=== PATIENT | male | born 1980 | race Two or more races ===

== ENCOUNTER 2021-04-15 11:36 | Emergency (ER) | payer BC ==
[~2021-04-15] VITALS: Ht 170.2 cm; Wt 204.0 kg
[2021-04-15 11:52] VITALS: BP 129/69
[2021-04-15] MEDS ORDERED: BACITRACIN 0.9 GM PACKET OINTMENT TP ONE (12:15)
== END 2021-04-15 12:54 | disposition home or self-care (01) ==
LOC: EMS 11:37
DX: I83.891 Varicose veins of right lower extremity with other complications (principal)
CPT/HCPCS: 99283

== ENCOUNTER 2021-04-23 20:57 | Emergency (ER) | payer BC ==
[~2021-04-23] VITALS: Ht 170.2 cm; Wt 204.6 kg
[2021-04-23 21:59] LABS: APPEARANCE,URINE CLOUDY (CLEAR); BILIRUBIN,URINE NEGATIVE (NEGATIVE); GLUCOSE, URINE (UA) NEGATIVE (NEGATIVE); KETONES,URINE NEGATIVE (NEGATIVE); LEUKOCYTE ESTERASE ,URINE MODERATE (NEGATIVE); NITRATE,URINE NEGATIVE (NEGATIVE); OCCULT BLOOD,URINE LARGE (NEGATIVE); PH,URINE 5.5 (5.0-8.0); PROTEIN,URINE SEE CONFIRM (NEGATIVE); UROBILINOGEN,URINE 0.2 mg/dL (<=1.0)
[2021-04-23 22:26] LABS: SULFOSALICYLIC ACID,URINE 4+ (Negative)
[2021-04-23 22:27] LABS: BACTERIA,URINE Moderate /HPF (None Seen); RBC,URINE Full Field /HPF (0-2); WBC,URINE 26-50 /HPF (0-5)
[2021-04-24] MEDS ORDERED: CEPHALEXIN MONOHYDRATE 500 MG CAPSULE PO ONE (00:15)
[2021-04-24 00:16] VITALS: BP 141/83
== END 2021-04-24 00:25 | disposition home or self-care (01) ==
LOC: EMS 20:58
DX: N39.0 Urinary tract infection, site not specified (principal)
CPT/HCPCS: 81001; 81002; 87086; 99283